=== PATIENT | female | born 1970 | race African-American/Black ===

== ENCOUNTER 2017-10-02 17:21 | Emergency (ER) | payer BC, OTHER ==
[2017-10-02] MEDS ORDERED: DEXAMETHASONE SOD PHOSPHATE 10MG/ML 1ML VIAL ONE (19:38)
[2017-10-02] MEDS ORDERED: SODIUM CHLORIDE 0.9% 1000ML 1,000 ML IV ONE (19:38)
[2017-10-02] MEDS ORDERED: PROCHLORPERAZINE EDISYLATE 10 MG/2 ML VIAL ONE (19:38)
[2017-10-02] MEDS ORDERED: DiphenhydrAMINE HCL 50 MG/ML VIAL ONE (19:39)
== END 2017-10-02 21:21 | disposition home or self-care (01) ==
LOC: EDH 17:21
DX: G43.909 Migraine, unspecified, not intractable, without status migrainosus (principal); G89.29 Other chronic pain; M54.2 Cervicalgia; M19.90 Unspecified osteoarthritis, unspecified site; Z72.0 Tobacco use
CPT/HCPCS: 96361; 96374; 96375; 99284; J0780; J1100; J1200; J7030

== ENCOUNTER 2018-06-12 19:43 | Emergency (ER) | payer BC ==
[2018-06-12 20:13] LABS: APPEARANCE,URINE Clear (CLEAR); BILIRUBIN,URINE Negative (NEGATIVE); COLOR,URINE Yellow (YELLOW); GLUCOSE, URINE (UA) Negative (NEGATIVE); KETONES,URINE Negative (NEGATIVE); LEUKOCYTE ESTERASE ,URINE Trace (NEGATIVE); NITRATE,URINE Negative (NEGATIVE); OCCULT BLOOD,URINE Large (NEGATIVE); PROTEIN,URINE Negative (NEGATIVE); UROBILINOGEN,URINE 0.2 mg/dL (0.2-1.0)
[2018-06-12 20:14] LABS: BASOPHILS % (AUTO) 0.3 % (0.0-5.0); EOSINOPHILS % (AUTO) 0.9 % (0.0-8.0); HEMATOCRIT 40.7 % (36-48); LYMPHOCYTES % (AUTO) 12.9 % (21.0-51.0); MEAN CORPUSCULAR HEMOGLOBIN 28.3 pg (27.0-33.0); MEAN CORPUSCULAR VOLUME 85.7 fL (79-99); MONOCYTES % (AUTO) 3.9 % (3.0-13.0); PLATELET COUNT (AUTO) 144 K/uL (130-400); RED BLOOD CELL COUNT(AUTO) 4.75 MIL/uL (4.00-5.50); RED CELL DISTRIBUTION WIDTH 13.1 % (11.0-15.5); WHITE BLOOD COUNT (AUTO) 6.4 K/uL (4.8-10.8)
[2018-06-12 20:16] LABS: HCG,QUAL RESULT NEGATIVE (NEGATIVE)
[2018-06-12 20:22] LABS: AMPHET/METH SCREEN,URINE NEGATIVE (NEGATIVE); BARBITURATE SCREEN, URINE NEGATIVE (NEGATIVE); BENZODIAZEPINES SCREEN,URINE NEGATIVE (NEGATIVE); CANNABINOID SCREEN,URINE NEGATIVE (NEGATIVE); COCAINE SCREEN,URINE NEGATIVE (NEGATIVE); OPIATE SCREEN,URINE POSITIVE (NEGATIVE); PHENCYCLIDINE SCREEN,URINE NEGATIVE (NEGATIVE)
[2018-06-12 20:25] LABS: CREATININE 0.7 mg/dL (0.5-1.5); POTASSIUM 4.1 mmol/L (3.5-5.1)
[2018-06-12 20:29] LABS: ALBUMIN 3.6 g/dL (3.5-5.0); BILIRUBIN,TOTAL 0.6 mg/dL (0.2-1.0); TOTAL PROTEIN, SERUM 6.5 g/dL (6.0-8.3)
[2018-06-12] MEDS ORDERED: ASPIRIN 325 MG TABLET ONE (20:36)
[2018-06-12 20:41] LABS: BACTERIA,URINE Rare /HPF (None Seen); MUCUS,URINE None Seen LPF (None Seen)
== END 2018-06-12 22:58 | disposition home or self-care (01) ==
LOC: EDH 19:43
DX: R07.89 Other chest pain (principal); K59.00 Constipation, unspecified; R21 Rash and other nonspecific skin eruption; G43.909 Migraine, unspecified, not intractable, without status migrainosus; M19.90 Unspecified osteoarthritis, unspecified site; G89.29 Other chronic pain; M54.2 Cervicalgia; Z98.890 Other specified postprocedural states; Z72.0 Tobacco use
CPT/HCPCS: 36415; 71045; 74018; 80053; 80305; 81001; 81025; 82550; 84484; 85025; 93005

== ENCOUNTER 2018-09-20 11:01 | Emergency (ER) | payer BC ==
[2018-09-20] MEDS ORDERED: KETOROLAC TROMETHAMINE 60 MG/2 ML VIAL ONE (13:40)
== END 2018-09-20 15:22 | disposition home or self-care (01) ==
LOC: EDH 11:01
DX: S93.691A Other sprain of right foot, initial encounter (principal); S93.401A Sprain of unspecified ligament of right ankle, initial encounter; S70.02XA Contusion of left hip, initial encounter; G43.909 Migraine, unspecified, not intractable, without status migrainosus; M19.90 Unspecified osteoarthritis, unspecified site; Z98.890 Other specified postprocedural states; W01.0XXA Fall on same level from slipping, tripping and stumbling without subsequent striking against object, initial encounter; Y93.89 Activity, other specified; Y92.89 Other specified places as the place of occurrence of the external cause; Y99.8 Other external cause status
CPT/HCPCS: 73502; 73562; 73610; 81025; 96372; 99285; J1885

== ENCOUNTER 2019-02-15 10:08 | Emergency (ER) | payer BC ==
[2019-02-15] MEDS ORDERED: DiphenhydrAMINE HCL 50 MG/ML VIAL ONE (10:30)
[2019-02-15] MEDS ORDERED: KETOROLAC TROMETHAMINE 15MG/ML ONE (10:30)
[2019-02-15] MEDS ORDERED: SODIUM CHLORIDE 0.9% 500ML 500 ML IV ONE ×2 (10:31→10:54)
[2019-02-15] MEDS ORDERED: PROCHLORPERAZINE EDISYLATE 10 MG/2 ML VIAL ONE (10:31)
[2019-02-15 11:40] LABS: APPEARANCE,URINE CLEAR (CLEAR); BILIRUBIN,URINE NEGATIVE (NEGATIVE); COLOR,URINE YELLOW (YELLOW); GLUCOSE, URINE (UA) NEGATIVE (NEGATIVE); KETONES,URINE NEGATIVE (NEGATIVE); LEUKOCYTE ESTERASE ,URINE NEGATIVE (NEGATIVE); NITRATE,URINE NEGATIVE (NEGATIVE); OCCULT BLOOD,URINE NEGATIVE (NEGATIVE); PH,URINE 6.5 (5.0-8.0); PROTEIN,URINE NEGATIVE (NEGATIVE); UROBILINOGEN,URINE 0.2 mg/dL (0.2-1.0)
== END 2019-02-15 13:10 | disposition home or self-care (01) ==
LOC: EDH 10:08
DX: G43.909 Migraine, unspecified, not intractable, without status migrainosus (principal); R11.2 Nausea with vomiting, unspecified; R19.7 Diarrhea, unspecified; M19.90 Unspecified osteoarthritis, unspecified site; G89.29 Other chronic pain; M54.2 Cervicalgia; Z98.890 Other specified postprocedural states
CPT/HCPCS: 36415; 81003; 85651; 96361; 96374; 96375; 99284; J0780; J1200; J1885; J7040 ×2

== ENCOUNTER 2019-09-18 20:23 | Emergency (ER) | payer BC ==
[2019-09-18 21:07] LABS: BASOPHILS % (AUTO) 0.5 % (0.0-5.0); EOSINOPHILS % (AUTO) 0.8 % (0.0-8.0); HEMATOCRIT 38.4 % (36-48); LYMPHOCYTES % (AUTO) 53.9 % (21.0-51.0); MEAN CORPUSCULAR HEMOGLOBIN 26.8 pg (27.0-33.0); MEAN CORPUSCULAR HGB CONC 31.5 g/dL (32.0-36.0); MONOCYTES % (AUTO) 5.2 % (3.0-13.0); NEUTROPHILS % (AUTO) 39.4 % (40.0-77.0); PLATELET COUNT (AUTO) 202 K/uL (130-400); RED BLOOD CELL COUNT(AUTO) 4.52 MIL/uL (4.00-5.50); RED CELL DISTRIBUTION WIDTH 12.4 % (11.0-15.5)
[2019-09-18 21:22] LABS: CREATININE 0.7 mg/dL (0.5-1.5); POTASSIUM 3.3 mmol/L (3.5-5.1)
[2019-09-18 21:26] LABS: INR 1.02 (0.85-1.15); PARTIAL THROMBOPLASTIN TIME 27.3 SEC (26.3-35.5); PROTHROMBIN TIME 10.7 SEC (9.6-11.6)
[2019-09-18 21:27] LABS: BILIRUBIN,TOTAL 0.2 mg/dL (0.2-1.0); TOTAL PROTEIN, SERUM 7.2 g/dL (6.0-8.3)
[2019-09-18 22:17] LABS: AMPHET/METH SCREEN,URINE NEGATIVE (NEGATIVE); BARBITURATE SCREEN, URINE NEGATIVE (NEGATIVE); BENZODIAZEPINES SCREEN,URINE NEGATIVE (NEGATIVE); CANNABINOID SCREEN,URINE NEGATIVE (NEGATIVE); COCAINE SCREEN,URINE NEGATIVE (NEGATIVE); OPIATE SCREEN,URINE NEGATIVE (NEGATIVE); PHENCYCLIDINE SCREEN,URINE NEGATIVE (NEGATIVE)
[2019-09-18] MEDS ORDERED: POTASSIUM CHLORIDE 20 MEQ ERTAB PO ONE (22:47)
== END 2019-09-18 22:55 | disposition home or self-care (01) ==
LOC: EDH 20:23
DX: R07.89 Other chest pain (principal); E87.6 Hypokalemia; G43.909 Migraine, unspecified, not intractable, without status migrainosus; F20.9 Schizophrenia, unspecified; M19.90 Unspecified osteoarthritis, unspecified site; G89.29 Other chronic pain; M54.2 Cervicalgia; Z98.890 Other specified postprocedural states; Z72.0 Tobacco use
CPT/HCPCS: 36415; 71045; 80053; 80305; 82550; 84484; 85025; 85610; 85730; 93005

== ENCOUNTER 2020-10-30 16:12 | Emergency (ER) | payer BC ==
[2020-10-30] MEDS ORDERED: LIDOCAINE HCL-MPF 1% 2ML VIAL ONE (16:56)
[2020-10-30] MEDS ORDERED: CEFTRIAXONE SODIUM 1 GM ONE (16:56)
[2020-10-30] MEDS ORDERED: PHENAZOPYRIDINE HCL 200 MG TABLET ONE (16:57)
[2020-10-30 18:14] LABS: APPEARANCE,URINE Clear (CLEAR); BILIRUBIN,URINE Negative (NEGATIVE); COLOR,URINE Dark Yellow (YELLOW); GLUCOSE, URINE (UA) Negative (NEGATIVE); KETONES,URINE Negative (NEGATIVE); LEUKOCYTE ESTERASE ,URINE Small (NEGATIVE); NITRATE,URINE Positive (NEGATIVE); OCCULT BLOOD,URINE Negative (NEGATIVE); PH,URINE 7.5 (5.0-8.0); PROTEIN,URINE Negative (NEGATIVE)
[2020-10-30 18:20] LABS: BACTERIA,URINE Rare /HPF (None Seen); RBC,URINE 0-1 /HPF (0-1); SQUAMOUS EPITHELIAL CELL,UR Few /HPF (0-2)
[2020-10-30 18:21] LABS: TRANSITIONAL EPI CELLS,URINE Rare /HPF (None Seen)
== END 2020-10-30 18:35 | disposition home or self-care (01) ==
LOC: EDH 16:12
DX: N30.90 Cystitis, unspecified without hematuria (principal); R30.0 Dysuria; M19.90 Unspecified osteoarthritis, unspecified site; G43.909 Migraine, unspecified, not intractable, without status migrainosus; G89.4 Chronic pain syndrome; F20.9 Schizophrenia, unspecified; Z72.0 Tobacco use
CPT/HCPCS: 81001; 87088; 96372; 99284; J0696; J3490

== ENCOUNTER 2021-04-26 03:17 | Emergency (ER) | payer BC ==
[~2021-04-26] VITALS: Ht 177.8 cm; Wt 54.9 kg
[2021-04-26 03:23] VITALS: BP 126/81
[2021-04-26] MEDS ORDERED: DiphenhydrAMINE HCL 50 MG/ML VIAL IM ONE (04:00)
[2021-04-26] MEDS ORDERED: HALOPERIDOL INJ 5 MG/ML VIAL IM SCH (04:00)
[2021-04-26 05:56] VITALS: BP 129/70
== END 2021-04-26 05:50 | disposition home or self-care (01) ==
LOC: EDH 03:17
DX: G43.909 Migraine, unspecified, not intractable, without status migrainosus (principal); Z79.899 Other long term (current) drug therapy
CPT/HCPCS: 96372 ×2; 99284; J1200; J1630

== ENCOUNTER 2021-09-20 12:30 | Emergency (ER) | payer BC ==
[~2021-09-20] VITALS: Ht 177.8 cm; Wt 61.2 kg
[2021-09-20 13:04] LABS: BASOPHILS % (AUTO) 0.2 % (0.0-5.0); HEMATOCRIT 40.8 % (36-48); LYMPHOCYTES % (AUTO) 19.2 % (21.0-51.0); MEAN CORPUSCULAR HEMOGLOBIN 27.3 pg (27.0-33.0); MEAN CORPUSCULAR HGB CONC 31.9 g/dL (32.0-36.0); MEAN CORPUSCULAR VOLUME 85.5 fL (79-99); MONOCYTES % (AUTO) 7.3 % (3.0-13.0); NEUTROPHILS % (AUTO) 73.1 % (40.0-77.0); PLATELET COUNT (AUTO) 196 K/uL (130-400); RED BLOOD CELL COUNT(AUTO) 4.77 MIL/uL (4.00-5.50); RED CELL DISTRIBUTION WIDTH 13.2 % (11.0-15.5); WHITE BLOOD COUNT (AUTO) 12.3 K/uL (4.8-10.8)
[2021-09-20 13:18] LABS: ALBUMIN 4.2 g/dL (3.5-5.0); BILIRUBIN,TOTAL 0.5 mg/dL (0.2-1.0); CREATININE 0.7 mg/dL (0.5-1.5); POTASSIUM 4.3 mmol/L (3.5-5.1); TOTAL PROTEIN, SERUM 7.6 g/dL (6.0-8.3)
[2021-09-20] MEDS ORDERED: DiphenhydrAMINE HCL 50 MG/ML VIAL IM ONE (14:30)
[2021-09-20] MEDS ORDERED: PROCHLORPERAZINE 10MG/2ML INJ IM ONE (14:30)
[2021-09-20] MEDS ORDERED: ACETAMINOPHEN 500 MG TABLET PO ONE (14:30)
[2021-09-20] MEDS ORDERED: FIORIT PO (15:15)
[2021-09-20 15:45] VITALS: BP 135/74
[2021-09-20 17:24] LABS: AMPHET/METH SCREEN,URINE NEGATIVE (NEGATIVE); BARBITURATE SCREEN, URINE NEGATIVE (NEGATIVE); BENZODIAZEPINES SCREEN,URINE POSITIVE (NEGATIVE); CANNABINOID SCREEN,URINE POSITIVE (NEGATIVE); COCAINE SCREEN,URINE NEGATIVE (NEGATIVE); OPIATE SCREEN,URINE POSITIVE (NEGATIVE); PHENCYCLIDINE SCREEN,URINE NEGATIVE (NEGATIVE)
== END 2021-09-20 15:46 | disposition home or self-care (01) ==
LOC: EDH 12:30
DX: G43.909 Migraine, unspecified, not intractable, without status migrainosus (principal); Z20.822 Contact with and (suspected) exposure to COVID-19; F41.9 Anxiety disorder, unspecified; F32.A Depression, unspecified
CPT/HCPCS: 36415; 80053; 80305; 85025; 87635; 87804 ×2; 96372 ×2; 99284; C9803; J0780; J1200

== ENCOUNTER 2022-06-29 19:46 | Emergency (ER) | payer BC ==
[~2022-06-29] VITALS: Ht 177.8 cm; Wt 59.4 kg
[~2022-06-29 19:46] MED LIST: CYCL10TA16 PO; FIORIT PO; NAPR375T6 PO
[2022-06-29 20:11] VITALS: BP 118/82
[2022-06-29 22:27] LABS: APPEARANCE,URINE CLEAR (CLEAR); BILIRUBIN,URINE NEGATIVE (NEGATIVE); COLOR,URINE LIGHT-YELLOW (YELLOW); GLUCOSE, URINE (UA) NEGATIVE (NEGATIVE); KETONES,URINE NEGATIVE (NEGATIVE); LEUKOCYTE ESTERASE ,URINE 250 Leu/uL (NEGATIVE); NITRATE,URINE NEGATIVE (NEGATIVE); OCCULT BLOOD,URINE NEGATIVE (NEGATIVE); PROTEIN,URINE NEGATIVE (NEGATIVE); UROBILINOGEN,URINE 0.2 mg/dL (0.2-1.0)
[2022-06-29] MEDS ORDERED: LORAZEPAM 1 MG TABLET PO ONE (22:30)
[2022-06-29] MEDS ORDERED: KETOROLAC 30MG VIAL (30MG/ML) IM ONE (22:30)
[2022-06-29 22:34] LABS: MUCUS,URINE RARE LPF (None Seen); SQUAMOUS EPITHELIAL CELL,UR FEW /HPF (0-2)
== END 2022-06-29 22:41 | disposition home or self-care (01) ==
LOC: EDH 19:46
DX: G89.29 Other chronic pain (principal); M54.2 Cervicalgia; M54.6 Pain in thoracic spine; Z79.1 Long term (current) use of non-steroidal anti-inflammatories (NSAID)
CPT/HCPCS: 99284; 87088; 81001; 96372; J1885

== ENCOUNTER 2023-07-30 11:27 | Emergency (ER) | payer BC ==
[~2023-07-30] VITALS: Ht 177.8 cm; Wt 65.8 kg
[2023-07-30] MEDS ORDERED: ACET-2893 PO (13:36)
[2023-07-30 13:39] VITALS: BP 128/78; PULSE 80; RESP 16; O2SAT 99
[2023-07-30] MEDS ORDERED: KETOROLAC 30MG VIAL (30MG/ML) IM ONE (14:00)
== END 2023-07-30 14:11 | disposition home or self-care (01) ==
LOC: EDH 11:27
DX: G89.29 Other chronic pain (principal); M54.2 Cervicalgia; M54.50 Low back pain, unspecified
CPT/HCPCS: 99284; 96372; J1885

== ENCOUNTER 2023-08-06 21:46 | Emergency (ER) | payer BC ==
[~2023-08-06] VITALS: Ht 177.8 cm; Wt 79.4 kg
[~2023-08-06 21:46] MED LIST changes: +ACET-2893 PO
[2023-08-06] MEDS ORDERED: CYCL10TA16 PO (22:44)
[2023-08-06] MEDS ORDERED: CYCLOBENZAPRINE HCL 10 MG TABLET PO ONE (23:00)
[2023-08-06 23:16] VITALS: BP 137/84; PULSE 82; RESP 16; O2SAT 99
== END 2023-08-06 23:18 | disposition home or self-care (01) ==
LOC: EDH 21:46
DX: M54.2 Cervicalgia (principal); R25.2 Cramp and spasm; F41.9 Anxiety disorder, unspecified; F32.A Depression, unspecified; Z79.899 Other long term (current) drug therapy; Z98.890 Other specified postprocedural states